=== PATIENT | female | born 1975 | race Caucasian/White ===

== ENCOUNTER 2018-03-02 05:05 | Day surgery (SDC) | payer OTHER ==
[2018-03-01 09:30] VITALS: BMI 60.5
[2018-03-02] MEDS ORDERED: DEXAMETHASONE SOD PHOSPHATE 4 MG/1 ML VIAL ONE (07:23)
[2018-03-02] MEDS ORDERED: LIDOCAINE HCL/PF 2% SDV 5ML VIAL ONE (07:23)
[2018-03-02] MEDS ORDERED: PROPOFOL 20 ML ONE ×5 (07:24→08:36)
[2018-03-02] MEDS ORDERED: MIDAZOLAM HCL 2 MG/2 ML SINGLE DOSE VIAL ONE (07:24)
[2018-03-02] MEDS ORDERED: SUCCINYLCHOLINE CHLORIDE 200 MG/10 ML VIAL ONE (07:24)
--- NOTE | 2018-03-02 07:46 | HP ---
History & Physical Update - History History: No Change - Physical Physical: No Change - Assessment Assessment: No Change - Plan Plan: No Change
[2018-03-02] MEDS ORDERED: oxyCODONE HCL 5 MG TABLET PO PRN (08:09)
[2018-03-02] MEDS ORDERED: ONDANSETRON 4 MG/2 ML VIAL IVPUSH PRN (08:09)
[2018-03-02] MEDS ORDERED: IBUPROFEN 600 MG TABLET (FP) PO PRN (08:09)
[2018-03-02] MEDS ORDERED: IBUPROFEN 800 MG/8 ML IJ IVPB PRN (08:09)
--- NOTE | 2018-03-02 08:09 | HP ---
Past Medical History - Primary Care Physician PCP:: Martin Martin - Admission Chief Complaint: irregular prolonged vaginal bleeding, thicken EM History of Present Illness: 42 yo f with 2 previous c/s, c/o prolonged vaginal bleeding ,lasting 2 weeks each time , sono thicken irregular EM History Source: Patient Limitations to Obtaining History: No Limitations - Past Surgical History Past Surgical History: Yes: Hx Myomectomy: No Hx Transabdominal Cerclage: No - Smoking History Smoking history: Never smoked Have you smoked in the past 12 months: No Aproximately how many cigarettes per day: 0 - Alcohol/Substance Use Hx Alcohol Use: Yes (social) - Social History History of Recent Travel: No Home Medications - Allergies Allergies/Adverse Reactions: Allergies Allergy/AdvReac Type Severity Reaction Status Date / Time Penicillins Allergy Verified 03/02/18 07:08 - Home Medications Home Medications: Ambulatory Orders Omeprazole 40 mg PO DAILY 03/01/18 Review of Systems - Review of Systems Constitutional: reports: No Symptoms Eyes: reports: No Symptoms HENT: reports: No Symptoms Neck: reports: No Symptoms Cardiovascular: reports: No Symptoms Respiratory: reports: No Symptoms Gastrointestinal: reports: No Symptoms Genitourinary: reports: No Symptoms Breasts: reports: No Symptoms Reported Musculoskeletal: reports: No Symptoms Integumentary: reports: No Symptoms Neurological: reports: No Symptoms Endocrine: reports: No Symptoms Physical Exam-[employer]INTER Vital Signs: Vital Signs Temperature 98.2 F 03/02/18 07:06 Pulse Rate 80 03/02/18 07:06 Respiratory Rate 20 03/02/18 07:06 Blood Pressure 121/79 03/02/18 07:06 O2 Sat by Pulse Oximetry (%) 98 03/02/18 07:06 Constitutional: Yes: Well Nourished, No Distress, Calm Eyes: Yes: WNL, Conjunctiva Clear, EOM Intact HENT: Yes: WNL, Atraumatic, Normocephalic Neck: Yes: WNL, Supple, Trachea Midline Cardiovascular: Yes: WNL, Regular Rate and Rhythm Respiratory: Yes: WNL, Regular, CTA Bilaterally Gastrointestinal: Yes: WNL ...Rectal Exam: Yes: WNL Renal/: Yes: WNL Pelvis: Yes: WNL External Genitalia: Yes: Normal Internal Exam Deferred: No Vaginal Exam: Yes: Bleeding Cervix: Yes: Normal Uterus: Yes: Enlarged Adnexa: Not Palpable: Left, Right Breast(s): Yes: WNL Musculoskeletal: Yes: WNL Extremities: Yes: WNL Edema: No Integumentary: Yes: WNL Neurological: Yes: WNL, Alert, Oriented ...Motor Strength: WNL Psychiatric: Yes: WNL, Alert, Oriented Problem List - Problem (1) Menometrorrhagia Code(s): N92.1 - EXCESSIVE AND FREQUENT MENSTRUATION WITH IRREGULAR CYCLE (2) Thickened endometrium Code(s): R93.89 - ABNORMAL FINDINGS ON DX IMAGING OF OTH BODY STRUCTURES Assessment/Plan hysteroscopy D&C , polypectomy
[2018-03-02] MEDS ORDERED: ELECTROLYTE-148 SOLN 1,000 ML IV SCH (08:15)
[2018-03-02] MEDS ORDERED: ONDANSETRON 4 MG/2 ML VIAL ONE (09:16)
[2018-03-02] MEDS ORDERED: LACTATED RINGERS SOLUTION 1,000 ML IV SCH (09:30)
[2018-03-02 17:04] VITALS: BP 120/70; PULSE 80; TEMP 98.2
--- NOTE | 2018-03-05 17:46 | PATH ---
Surgical Pathology Report Patient Name: GIORGIO LOPEZ [facility]. Rec. #: [id number] /Age/Gender: 1975 (Age: 42) / F Account: [id number] Location: [facility] SURGICAL Taken: 03/02/2018 Received: 03/02/2018 Reported: 03/05/2018 Physicians: Martin Martin M.D. Specimen(s) Received ENDOMETRIAL CURETTINGS AND ENDOMETRIAL POLYP Clinical History Endometrial thickening, irregular menses Final Diagnosis ENDOMETRIAL CURETTAGE AND POLYP, DILATION AND CURETTAGE: FRAGMENTS OF ENDOMETRIAL POLYP AND BENIGN CERVICAL TISSUE. Electronically Signed Tereza Gee M.D. Gross Description Received in formalin labeled "endometrial curettage with polyp," is a 4.3 x 3.3 x 0.4 cm aggregate of carrion soft tissue fragments admixed with blood-tinged mucous. The formalin is filtered and the specimen is entirely submitted in 2 cassettes. saudi/03/02/2018
--- NOTE | 2018-04-05 15:40 | OP ---
DATE OF OPERATION: 03/02/2018 PREOPERATIVE DIAGNOSES: Irregular menstrual period, prolonged vaginal bleeding, thickened endometrium, rule out endometrial polyp. POSTOPERATIVE DIAGNOSES: Irregular menstrual period, prolonged vaginal bleeding, thickened endometrium, rule out endometrial polyp. PROCEDURE: Hysteroscopy, dilatation and curettage, polypectomy. SURGEON: Martin Martin MD ANESTHESIA: General. ESTIMATED BLOOD LOSS: 30 mL DESCRIPTION OF OPERATIVE PROCEDURE: Patient was taken to the operating room. Under adequate general anesthesia in dorsal lithotomy position, examination under anesthesia revealed the external genitalia to be normal. Vagina was normal. Cervix was clean; no gross lesion. The uterus was prominent, anteverted. Adnexa: No masses were palpable. Then, with a weighted speculum in the vagina, anterior lip of the cervix was grasped with a single-tooth tenaculum. Cervix was gradually dilated with Hegar dilators, and Symphion resectoscope was introduced into the endocervical area and then advanced to the uterus. Uterus appeared to be irregular with endometrial polyp which was visualized in the right cornual area. At this time, with the Symphion resectoscope, the polyp was resected, and then, endometrium was curetted. Patient tolerated the procedure well, left the OR in good condition. Jorge A [id number]
== END 2018-03-02 11:40 | disposition home or self-care (01) ==
LOC: JASU-SURG 05:05
PROVIDERS: ATTEND Obstetrics & Gynecology
PROC: 0UJD8ZZ Inspection of Uterus and Cervix, Via Natural or Artificial Opening Endoscopic (ICD-10-PCS; 2018-03-02)
PROC: 0UB97ZX Excision of Uterus, Via Natural or Artificial Opening, Diagnostic (ICD-10-PCS; principal; 2018-03-02 08:00)
PROC: 0UDB7ZX Extraction of Endometrium, Via Natural or Artificial Opening, Diagnostic (ICD-10-PCS; 2018-03-02 08:00)
DX: N93.9 Abnormal uterine and vaginal bleeding, unspecified (principal); N84.0 Polyp of corpus uteri; N85.00 Endometrial hyperplasia, unspecified
CPT/HCPCS: 84703; 88305-TC; 94760

== ENCOUNTER 2019-03-29 15:19 | Emergency (ER) | payer OTHER ==
[2019-03-29 15:24] VITALS: BMI 25.8
--- NOTE | 2019-03-29 15:26 | PDOC ---
Rapid Medical Evaluation Medical Evaluation: Allergies Allergy/AdvReac Type Severity Reaction Status Date / Time Penicillins Allergy Verified 03/02/18 07:08 I have performed a brief in-person evaluation of this patient. The patient presents with a chief complaint of: had colonoscopy 3 days ago, c/o abdominal pain the day after colonoscopy; hx of PE (has IVC filter, is on Xarelto); had polyps removed during colonoscopy; patient's GI, Dr. Moctezuma, advised to come to ED Pertinent physical exam findings: In nad, abdomen soft, NT I have ordered the following: Labs The patient will proceed to the ED for further evaluation. 03/29/19 15:22
[2019-03-29 15:53] LABS: BASO % 0.8 % (0-2.0); EOS % 2.5 % (0-4.5); HEMATOCRIT 35.9 % (32.4-45.2); HEMOGLOBIN 11.7 GM/dL (10.7-15.3); MCH 25.8 pg (25.7-33.7); MCHC 32.7 g/dl (32.0-36.0); MEAN CELL VOLUME 78.9 fl (80-96); MEAN PLT VOLUME 7.8 fl (7.5-11.1); MONO % 6.8 % (3.8-10.2); NEUT % 59.9 % (42.8-82.8); PLATELET COUNT 269 K/MM3 (134-434); RBC 4.55 M/mm3 (3.60-5.2); WHITE BLOOD COUNT 6.4 K/mm3 (4.0-10.0)
[2019-03-29 15:57] LABS: EPI CELLS 6.2 /HPF (0-5/HPF); HYALINE CASTS 2 /lpf (0-8); PH,URINE 6.5 (5.0-8.0); URINE APPEARANCE CLEAR; URINE BACTERIA 44.2 /hpf (NEGATIVE); URINE BILIRUBIN NEGATIVE (NEGATIVE); URINE COLOR YELLOW; URINE GLUCOSE (UA) NEGATIVE (NEGATIVE); URINE KETONE NEGATIVE (NEGATIVE); URINE LEUK ESTERASE 2+ (NEGATIVE); URINE NITRITE NEGATIVE (NEGATIVE); URINE PROTEIN NEGATIVE (NEGATIVE); URINE RBC 1 /hpf (0-4); URINE UROBILINOGEN 0.2 mg/dL (0.2-1.0); URINE WBC 25 /hpf (0-5)
--- NOTE | 2019-03-29 15:57 | PDOC ---
History of Present Illness - General Chief Complaint: Pain Stated Complaint: ABD PAIN Time Seen by Provider: 03/29/19 15:21 History Source: Patient Exam Limitations: No Limitations - History of Present Illness Initial Comments: 43 year old female with PMH protein S deficiency, PE/abdominal clot s/p IVC filter, chronic constipation, GERD presented to ED for generalized abdominal pain x2.5 days. Pt reported she had an OP colonscopy x3 days ago with Dr. Moctezuma for rectal bleeding, polyps found and removed, and she went home feeling in her usual health. She admitted to one episode of nausea/vomiting yesterday, thinking it was 2/2 the intensity of the pain. She reported her pain is located to her generalized abdomen, nonradiating, no aggravating or alleviating factors. ROS General: denied fever, chills, generalized weakness. HEENT: denied sore throat, rhinorrhea, ear pain. Cardiovascular: denied chest pain, palpitations, syncope, diaphoresis. Respiratory: denied shortness of breath, cough, sputum production, hemoptysis. Gastrointestinal: admitted to abdominal pain, nausea, vomiting. denied diarrhea , constipation, blood in stool. Genitourinary: denied dysuria, increased urinary frequency, hematuria, urinary incontinence, flank pain. Back: denied back pain. Musculoskeletal: denied joint pain, muscle pain, joint swelling. Neurological: denied headache, dizziness, numbness, tingling, weakness. Integumentary: denied rash, laceration, abrasion. Hematologic/Lymphatic: denied bruising or bleeding. PE Constitutional: Well-nourished, Well-developed, appearing stated age. HEENT: head is normocephalic, atraumatic. EOMI. PERRLA. Neck: supple. Full ROM. Cardiovascular: regular heart rhythm. no murmurs. no pericardial friction rub. Respiratory: clear to auscultation bilaterally. no crackles, rhonchi or wheezing. no stridor. Gastrointestinal: soft, nontender. normal bowel sounds. no rebound, guarding, masses. Extremities: peripheral pulses intact. no lower extremity edema. Neurological: CN 2-12 grossly intact. moves all four extremities. Psych: awake, alert, oriented x3. follows commands. answers questions appropriately. Past History - Past Medical History Allergies/Adverse Reactions: Allergies Allergy/AdvReac Type Severity Reaction Status Date / Time Penicillins Allergy Verified 03/29/19 15:24 Home Medications: Ambulatory Orders Omeprazole 40 mg PO DAILY 03/01/18 Cephalexin Monohydrate [Keflex -] 500 mg PO BID 7 Days #14 capsule 03/29/19 Rivaroxaban [Xarelto -] 20 mg PO DAILY 03/29/19 Tramadol HCl 50 mg PO PRN 03/29/19 metroNIDAZOLE [Flagyl -] 250 mg PO TID #42 tablet 03/29/19 - Psycho Social/Smoking Cessation Hx Smoking Status: No Smoking History: Never smoked Have you smoked in the past 12 months: No Number of Cigarettes Smoked Daily: 0 Hx Alcohol Use: Yes (social) Drug/Substance Use Hx: No Substance Use Type: None Hx Substance Use Treatment: No *Physical Exam - Vital Signs Last Vital Signs Temp Pulse Resp BP Pulse Ox 98.5 F 81 18 136/78 100 03/29/19 15:21 03/29/19 15:21 03/29/19 15:21 03/29/19 15:21 03/29/19 15:21 ED Treatment Course - LABORATORY CBC & Chemistry Diagram: 03/29/19 15:38 03/29/19 15:38 - ADDITIONAL ORDERS Additional order review: 03/29/19 15:38 RBC 4.55 MCV 78.9 L MCHC 32.7 RDW 16.0 H MPV 7.8 Neutrophils % 59.9 Lymphocytes % 30.0 Monocytes % 6.8 Eosinophils % 2.5 Basophils % 0.8 Medical Decision Making - Medical Decision Making 43 year old female with above PMH presented to ED for generalized abdominal pain since the night of her recent colonoscopy. Pt reported she called Dr. Moctezuma's office, and a nurse informed her Dr. Moctezuma is in the hospital and will come by to see her. Initial Vital Signs Temp Pulse Resp BP Pulse Ox 98.5 F 81 18 136/78 100 03/29/19 15:21 03/29/19 15:21 03/29/19 15:21 03/29/19 15:21 03/29/19 15:21 Afebrile. No tachycardia. No tachypnea. No hypotension. No hypoxia on room air. Labs ordered: CBC, CMP, UA, serum , UA/UC, lactate Imaging ordered: CT abdomen/pelvis with IV contrast Medications ordered: tylenol IV once, normal saline bolus 1000 cc once I spoke with Dr. Moctezuma, who reported pt is high risk for clotting. He requested lactate, CT abdomen, if normal can discharge home with Flagyl 250 mg PO TID x2 weeks. 03/29/19 16:26 CBC WBC 6.4 K/mm3 (4.0-10.0) 03/29/19 15:38 RBC 4.55 M/mm3 (3.60-5.2) 03/29/19 15:38 Hgb 11.7 GM/dL (10.7-15.3) 03/29/19 15:38 Hct 35.9 % (32.4-45.2) 03/29/19 15:38 MCV 78.9 fl (80-96) L 03/29/19 15:38 MCH 25.8 pg (25.7-33.7) 03/29/19 15:38 MCHC 32.7 g/dl (32.0-36.0) 03/29/19 15:38 RDW 16.0 % (11.6-15.6) H 03/29/19 15:38 Plt Count 269 K/MM3 (134-434) 03/29/19 15:38 MPV 7.8 fl (7.5-11.1) 03/29/19 15:38 Absolute Neuts (auto) 3.8 K/mm3 (1.5-8.0) 03/29/19 15:38 Neutrophils % 59.9 % (42.8-82.8) 03/29/19 15:38 Lymphocytes % 30.0 % (8-40) 03/29/19 15:38 Monocytes % 6.8 % (3.8-10.2) 03/29/19 15:38 Eosinophils % 2.5 % (0-4.5) 03/29/19 15:38 Basophils % 0.8 % (0-2.0) 03/29/19 15:38 Nucleated RBC % 0 % (0-0) 03/29/19 15:38 No leukocytosis. No anemia. Low MCV. No thrombocytopenia. CMP Sodium 139 mmol/L (136-145) 03/29/19 15:38 Potassium 4.4 mmol/L (3.5-5.1) 03/29/19 15:38 Chloride 105 mmol/L (98-107) 03/29/19 15:38 Carbon Dioxide 29 mmol/L (21-32) 03/29/19 15:38 Anion Gap 5 MMOL/L (8-16) L 03/29/19 15:38 BUN 12.9 mg/dL (7-18) 03/29/19 15:38 Creatinine 0.8 mg/dL (0.55-1.3) 03/29/19 15:38 Est GFR (CKD-EPI)AfAm 103.19 03/29/19 15:38 Est GFR (CKD-EPI)NonAf 89.04 03/29/19 15:38 Random Glucose 86 mg/dL (74-106) 03/29/19 15:38 Calcium 9.4 mg/dL (8.5-10.1) 03/29/19 15:38 Total Bilirubin 0.6 mg/dL (0.2-1) 03/29/19 15:38 AST 26 U/L (15-37) 03/29/19 15:38 ALT 42 U/L (13-61) 03/29/19 15:38 Alkaline Phosphatase 105 U/L (45-117) 03/29/19 15:38 Total Protein 7.5 g/dl (6.4-8.2) 03/29/19 15:38 Albumin 4.0 g/dl (3.4-5.0) 03/29/19 15:38 Serum , Qual Negative 03/29/19 16:05 Urine Test Results Urine Color Yellow 03/29/19 15:38 Urine Appearance Clear 03/29/19 15:38 Urine pH 6.5 (5.0-8.0) D 03/29/19 15:38 Ur Specific [place] 1.009 (1.010-1.035) L 03/29/19 15:38 Urine Protein Negative (NEGATIVE) 03/29/19 15:38 Urine Glucose (UA) Negative (NEGATIVE) 03/29/19 15:38 Urine Ketones Negative (NEGATIVE) 03/29/19 15:38 Urine Blood Negative (NEGATIVE) 03/29/19 15:38 Urine Nitrite Negative (NEGATIVE) 03/29/19 15:38 Urine Bilirubin Negative (NEGATIVE) 03/29/19 15:38 Ur Leukocyte Esterase 2+ (NEGATIVE) H 03/29/19 15:38 03/29/19 17:24 Coags normal Lactate 2.2 IVF running, will give 1 additional liter. 03/29/19 17:34 CT report: Name: GIORGIO LOPEZ DEPARTMENT OF RADIOLOGY Phys: Tangela Moreno RESIDENT : 1975 Age: 43 Sex: F [facility] Acct: [id number] Loc: [place] [address] [facility] Exam Date: 03/29/19 Status: HECTOR [facility] Unit Number: [id number] EXAM#: TYPE/EXAM: RESULT: [id number] CT/ABDOMEN PELVIS CT WITH CONTR Abdomen and pelvis CT with contrast Clinical information: generalized abdominal pain; colonoscopy 3 days ago; history of protein S deficiency, IVC filter Multiplanar imaging was performed following the intravenous administration of nonionic contrast. Enteric contrast was not administered. No evidence of pneumoperitoneum , abscess, free intraperitoneal fluid or bowel obstruction. In comparison to a prior CT exam of 09/24/2017 interval insertion of an inferior vena cava filter is noted. A 1.7 x 0.9 x 0.9 cm hypodense focus is seen within the inferior vena cava lumen abutting the superior aspect of the filter suggestive of adherent thrombus. The remainder of the exam demonstrates no definite interval change. The appendix appears unremarkable. There is no CT evidence of acute diverticulitis obvious acute colitis. No gross noncontrast small bowel pathology is identified. Diffuse fatty infiltration of the liver is noted. The spleen, pancreas, gallbladder, adrenal glands and kidneys demonstrate no discrete abnormality. There is no aortic aneurysm. No definite lymphadenopathy is seen on the basis of size criteria. There is no obvious CT evidence of pelvic soft tissue pathology. Very small umbilical hernia containing fat only. Midline ventral abdominal wall laxity. Status post lower lumbar spine surgery. Impression: No definite CT findings of acute abnormality are noted. In comparison to a 2018 CT exam interval insertion of an inferior vena cava filter is seen. A 1.7 x 0.9 x 0.7 cm low-attenuation focus is seen within the inferior vena cava abutting the superior aspect of the filter suggestive of adherent thrombus. The remainder of the exam appears unchanged. Diffuse hepatic steatosis. Reported By: Mark Benavidez MD 03/29/19 [id number] Medications ordered: Flagyl 250 mg PO once,Keflex 500 mg PO once -Pt does not know what her allergy to Penicillin is as she "was so young" -Will give and observe 03/29/19 17:45 Pt reported no improvement of pain control from IV tylenol. Medications ordered: Ketamine 0.3 mg/kg over 15 minutes 03/29/19 19:24 Pt reported improvement of pain with Ketamine. Pending repeat Lactate. 03/29/19 20:11 Lactate 2.2 Pt reported improvement of pain, feels comfortable going home and will F/U with Dr. Moctezuma Monday at 10:00AM. Pt discharged. Discharge - Discharge Information Problems reviewed: Yes Clinical Impression/Diagnosis: Abdominal pain Condition: Stable Disposition: HOME - Admission No - Additional Discharge Information Prescriptions: Cephalexin Monohydrate [Keflex -] 500 mg PO BID 7 Days #14 capsule metroNIDAZOLE [Flagyl -] 250 mg PO TID #42 tablet - Follow up/Referral Referrals: Bhargavi Moralez MD [Primary Care Provider] - - Patient Discharge Instructions Additional Instructions: Follow up with Dr. Moctezuma Monday at 10:00 AM. Call his office in the morning and remind them you were told by Dr. Moctezuma to come in. He is expecting you. Drink lots of water/pedialyte/gatorade to stay hydrated. Take your pain medications you are prescribed at home. I have sent two antibiotics to your pharmacy. Take as advised on labels. Do not stop early even if you are feeling better. Return to the Emergency Department for inability to pass gas/bowel movement, increasing pain, chest pain, shortness of breath, vomiting, lightheadedness, passing out or any other new, worsening or concerning symptoms. - Post Discharge Activity Work/Back to School Note: Back to Work
[2019-03-29] MEDS ORDERED: SODIUM CHLORIDE 1,000 ML IV STA ×2 (16:14→17:25)
[2019-03-29] MEDS ORDERED: ACETAMINOPHEN 1000 MG/100 ML VIAL (NON FORMULARY) IVPB ONE (16:14)
[2019-03-29] MEDS ORDERED: ACETAMINOPHEN INJECTION 100 ML IVPB ONE (16:20)
[2019-03-29 16:25] LABS: BILIRUBIN,TOTAL 0.6 mg/dL (0.2-1); BLOOD UREA NITROGEN 12.9 mg/dL (7-18); CALCIUM 9.4 mg/dL (8.5-10.1); CREATININE 0.8 mg/dL (0.55-1.3); POTASSIUM 4.4 mmol/L (3.5-5.1); TOT PROT 7.5 g/dl (6.4-8.2)
--- NOTE | 2019-03-29 16:52 | PDOC ---
Attending Attestation - Resident Resident Name: Tangela Moreno - ED Attending Attestation I have performed the following: I have examined & evaluated the patient, The case was reviewed & discussed with the resident, I agree w/resident's findings & plan - HPI HPI: 03/29/19 16:51 43 year old female with PMH protein S deficiency, PE/abdominal clot s/p IVC filter, chronic constipation, GERD presented to ED for generalized abdominal pain x 3 days, nonradiating, no alleviating or exacerbating factors.. Pt reported she had an OP colonscopy x3 days ago with Dr. Moctezuma for rectal bleeding, polyps found and removed, no complications noted. She admitted to one episode of nausea/vomiting yesterday, a/w abdominal pain. - Physicial Exam PE: 03/29/19 17:42 Agree with the resident's HPI and PE as documented in the electronic medical record. NAD, well appearing, EOMI, PERRL, nl conjunctiva, anicteric; neck supple. lungs clear, RRR, abdomen soft +tender diffusely, no rebound, guarding. Back nontender. STEPHENSON x4, no focal neuro deficits. No peripheral edema. normal color for ethnicity, WWP. - Medical Decision Making 03/29/19 16:52 Vital Signs Temp Pulse Resp BP Pulse Ox 98.5 F 81 18 136/78 100 03/29/19 15:21 03/29/19 15:21 03/29/19 15:21 03/29/19 15:21 03/29/19 15:21 DDx abdominal pain: Renal colic, biliary colic, metabolic/electrolyte derangements. GERD, PUD, esophageal spasm, pancreatitis, hepatitis, constipation , colitis, gastroenteritis, cholecystitis, UTI, pyelonephritis, ileus, SBO, medication side effect, hernia, appendicitis, diverticulitis, mesenteric ischemia. msk strain, mesenteric adenitis, psoas abscess. perforation. labs and lytes unremarkable lactic borderline 2.2, hydrated, will recheck and trend - stable, does not appear tox or septic or ischemic UA +UTI, with clinical sx, will treat, f/u cultures, treat with keflex (low cross reactivity with pcn allergy, prior history as child but does not recall reaction, so will trial) Dr Moctezuma rec'd flagyl, to f/u Dr Moctezuma on Monday in [address] a/p unremarkable for acute abdominal process/infection/mass/perf/obstruction. Abdomen Reassessment: The patient appears comfortable and states that pain is improved. Given medications analgesia, IVF, ketamine (takes home tramadol for her chronic back pain) with clinical improvement. Tolerating oral intake. Vital signs reviewed and are normal. On repeat physical exam, the abdomen is soft and nontender, no suggestive findings for acute abdominal process at this time. All diagnostics tests reviewed and discussed with the patient. On repeat examination prior to discharge, the patient has a soft abdomen with no peritoneal findings. The patient was able to tolerate oral intake. The patient was advised that even though there is no evidence of a surgical emergency at this time, sometimes this is not visible on ct scan or in the labs early in a disease course and that if there is additional pain they are to return for repeat evaluation. The patient stated understanding of this, has decision making capacity and is discharged in stable condition. The patient was instructed to return to the emergency department for re-evaluation in 24-48 hours and sooner if they feel worse in any way. 03/29/19 17:43 03/29/19 18:17 03/29/19 23:14
[2019-03-29 16:55] LABS: INR 1.05 (0.83-1.09); PROTHROMBIN TIME (PATIENT) 12.4 SEC (9.7-13.0)
[2019-03-29] MEDS ORDERED: metroNIDAZOLE 250 MG TABLET PO ONE (17:36)
[2019-03-29] MEDS ORDERED: CEPHALEXIN MONOHYDRATE 500 MG CAPSULE (UD) PO ONE (17:41)
[2019-03-29] MEDS ORDERED: KETAMINE HCL 200 MG/20 ML VIAL IVPUSH ONE (17:43)
[2019-03-29] MEDS ORDERED: KETAMINE HCL 500 MG/10 ML VIAL IVPB ONE (17:46)
[2019-03-29] MEDS ORDERED: CEPHALEXIN MONOHYDRATE 500 MG CAPSULE (UD) ONE (18:23)
[2019-03-29] MEDS ORDERED: metroNIDAZOLE 250 MG TABLET ONE (18:23)
[2019-03-29] MEDS ORDERED: KETAMINE HCL 200 MG/20 ML VIAL ONE (19:09)
[2019-03-29 20:11] VITALS: BP 115/78; PULSE 83; TEMP 98
== END 2019-03-29 20:30 | disposition home or self-care (01) ==
LOC: JER 15:19
PROC: 3E0337Z Introduction of Electrolytic and Water Balance Substance into Peripheral Vein, Percutaneous Approach (ICD-10-PCS; principal; 2019-03-29)
PROC: 3E033NZ Introduction of Analgesics, Hypnotics, Sedatives into Peripheral Vein, Percutaneous Approach (ICD-10-PCS; 2019-03-29)
PROC: 3E033FZ Introduction of Intracirculatory Anesthetic into Peripheral Vein, Percutaneous Approach (ICD-10-PCS; 2019-03-29)
DX: R10.84 Generalized abdominal pain (principal); G89.18 Other acute postprocedural pain; Z86.711 Personal history of pulmonary embolism; Z79.01 Long term (current) use of anticoagulants; Z95.828 Presence of other vascular implants and grafts; K21.9 Gastro-esophageal reflux disease without esophagitis; K59.00 Constipation, unspecified; Z88.0 Allergy status to penicillin
CPT/HCPCS: 36415; 74177-TC; 80053; 81003; 83605; 84703; 85025; 85610; 85730; 96361; 96374; 96375; 99283-25; J0131; J7030

== ENCOUNTER 2020-05-21 11:14 | Emergency (ER) | payer OTHER ==
[2020-05-21 11:20] VITALS: BMI 28.9
[2020-05-21] MEDS ORDERED: ACETAMINOPHEN 500 MG TABLET (FP) PO ONE (12:33)
[2020-05-21 13:04] LABS: BASO % 0.8 % (0-2.0); EOS % 2.2 % (0-4.5); HEMATOCRIT 40.8 % (32.4-45.2); HEMOGLOBIN 13.8 GM/dL (10.7-15.3); MCH 30.9 pg (25.7-33.7); MCHC 33.9 g/dl (32.0-36.0); MEAN CELL VOLUME 91.4 fl (80-96); MEAN PLT VOLUME 8.3 fl (7.5-11.1); MONO % 10.9 % (3.8-10.2); NEUT % 62.1 % (42.8-82.8); PLATELET COUNT 197 K/MM3 (134-434); RBC 4.46 M/mm3 (3.60-5.2); RDW 13.1 % (11.6-15.6); WHITE BLOOD COUNT 3.9 K/mm3 (4.0-10.0)
[2020-05-21 13:24] LABS: CHLORIDE 104 mmol/L (98-107); POTASSIUM 4.1 mmol/L (3.5-5.1); SODIUM 140 mmol/L (136-145)
[2020-05-21 13:26] LABS: ALBUMIN 3.8 g/dl (3.4-5.0); ANION GAP 8 MMOL/L (8-16); BLOOD UREA NITROGEN 14.6 mg/dL (7-18); CO2 28 mmol/L (21-32)
[2020-05-21 13:27] LABS: GLUCOSE,RANDOM 78 mg/dL (74-106)
[2020-05-21 13:28] LABS: SGPT/ALT 138 U/L (13-61)
[2020-05-21 13:30] LABS: CREATININE 0.8 mg/dL (0.55-1.3); SGOT/AST 74 U/L (15-37)
[2020-05-21 13:31] LABS: ALK PHOS 106 U/L (45-117); BILIRUBIN,TOTAL 0.6 mg/dL (0.2-1); TOT PROT 7.6 g/dl (6.4-8.2)
[2020-05-21] MEDS ORDERED: ACETAMINOPHEN 325 MG TABLET (FP) ONE ×2 (13:41→14:08)
[2020-05-21 14:27] LABS: PH,URINE 7.5 (5.0-8.0); URINE APPEARANCE TURBID; URINE BILIRUBIN NEGATIVE (NEGATIVE); URINE COLOR YELLOW; URINE GLUCOSE (UA) NEGATIVE (NEGATIVE); URINE KETONE NEGATIVE (NEGATIVE); URINE LEUK ESTERASE NEGATIVE (NEGATIVE); URINE NITRITE NEGATIVE (NEGATIVE); URINE PROTEIN NEGATIVE (NEGATIVE); URINE UROBILINOGEN 0.2 mg/dL (0.2-1.0)
[2020-05-21 14:31] LABS: HCG,QUALITATIVE URINE Negative
[2020-05-21 17:19] VITALS: BP 109/74; PULSE 85; TEMP 98.6
== END 2020-05-21 17:33 | disposition home or self-care (01) ==
LOC: JER 11:14
DX: U07.1 COVID-19 (principal)
CPT/HCPCS: 36415; 71275-TC; 80053; 81003; 82550; 84484; 84702; 84703; 85025; 85379; 87086; 87426; 93005; 93010; 99285-25; Q9967

== ENCOUNTER 2022-11-04 10:38 | Emergency (ER) | payer OTHER ==
[2022-11-04 10:46] VITALS: BMI 26.6
[2022-11-04 12:36] LABS: BASO % 0.7 % (0-2.0); EOS % 2.4 % (0-4.5); HEMATOCRIT 42.1 % (32.4-45.2); HEMOGLOBIN 14.2 GM/dL (10.7-15.3); LYMPH % 30.2 % (8-40); MCH 30.2 pg (25.7-33.7); MCHC 33.8 g/dl (32.0-36.0); MEAN CELL VOLUME 89.4 fl (80-96); MEAN PLT VOLUME 8.1 fl (7.5-11.1); MONO % 7.6 % (3.8-10.2); NEUT % 59.1 % (42.8-82.8); PLATELET COUNT 259 10^3/uL (134-434); RBC 4.71 M/mm3 (3.60-5.2); RDW 12.6 % (11.6-15.6); WHITE BLOOD COUNT 5.9 K/mm3 (4.0-10.0)
[2022-11-04 12:43] LABS: INR 1.09 (0.83-1.09); PROTHROMBIN TIME (PATIENT) 12.6 SEC (9.7-13.0)
[2022-11-04 12:46] LABS: ACTIVATED PTT 29.4 SECONDS (25.2-36.5)
[2022-11-04 12:52] LABS: POTASSIUM 4.3 mmol/L (3.5-5.1)
[2022-11-04 12:54] LABS: BLOOD UREA NITROGEN 11.3 mg/dL (7-18); CALCIUM 9.2 mg/dL (8.5-10.1)
[2022-11-04 12:57] LABS: CREATININE 0.7 mg/dL (0.55-1.3)
[2022-11-04 13:00] LABS: BILIRUBIN,TOTAL 0.7 mg/dL (0.2-1); TOT PROT 7.7 g/dl (6.4-8.2)
[2022-11-04 16:59] VITALS: BP 118/91; PULSE 79; RESP 14; TEMP 98.8
== END 2022-11-04 17:14 | disposition home or self-care (01) ==
LOC: JER 10:38
DX: R07.9 Chest pain, unspecified (principal); R06.02 Shortness of breath
CPT/HCPCS: 0241U-QW; 36415; 71046-TC-FY; 71275-TC; 80053; 84484; 85025; 85610; 85730; 86850; 86870; 86900; 86901; 86902; 93005; 93010; 99285-25; Q9967

== ENCOUNTER 2023-11-01 04:30 | Day surgery (SDC) | payer OTHER ==
[2023-11-01 06:17] VITALS: BMI 30.4
[2023-11-01] MEDS ORDERED: CEFAZOLIN SODIUM 2 GM in DEXTROSE 5%-WATER 100 ML IVPB ONE (07:00)
[2023-11-01] MEDS ORDERED: BUPIVACAINE HCL/PF 0.25% (2.5MG/ML) 10 ML VIAL ONE (07:21)
[2023-11-01] MEDS ORDERED: LIDOCAINE 1%/EPI 1:100000 (20 ML MULTI DOSE VIAL) ONE (07:21)
[2023-11-01] MEDS ORDERED: ACETAMINOPHEN INJECTION 100 ML IVPB ONE (07:58)
[2023-11-01] MEDS: BUPIVACAINE HCL/PF 0.25% (2.5MG/ML) 10 ML VIAL IJ ONE ×2 (08:41)
[2023-11-01] MEDS ORDERED: ONDANSETRON 4 MG/2 ML VIAL IVPUSH PRN (09:13)
[2023-11-01] MEDS ORDERED: LACTATED RINGERS SOLUTION 1,000 ML IV SCH (09:15)
[2023-11-01 11:15] VITALS: RESP 16
[2023-11-01 11:21] VITALS: TEMP 97.5
[2023-11-01] MEDS ORDERED: oxyCODONE HCL 5 MG TABLET ONE (11:30)
[2023-11-01] MEDS: oxyCODONE HCL 5 MG TABLET PO PRN (11:32)
[2023-11-01 13:49] VITALS: BP 118/74; PULSE 82
== END 2023-11-01 13:10 | disposition home or self-care (01) ==
LOC: JASU-SURG 04:30
PROVIDERS: ATTEND Surgery Surgical Oncology
PROC: 0HBY0ZZ Excision of Supernumerary Breast, Open Approach (ICD-10-PCS; principal; 2023-11-01 08:00)
DX: Q83.1 Accessory breast (principal)
CPT/HCPCS: 88307-TC; 94760; J0131

== ENCOUNTER 2024-05-05 17:26 | Emergency (ER) | payer OTHER ==
[2024-05-05 17:32] VITALS: RESP 18; BMI 28.9
[2024-05-05] MEDS: ACETAMINOPHEN 1000 MG/100 ML BAG IVPB ONE (18:44)
[2024-05-05] MEDS ORDERED: IBUPROFEN 600 MG TABLET (FP) PO ONE (18:49)
[2024-05-05] MEDS ORDERED: DOXYCYCLINE HYCLATE 100 MG CAPSULE PO ONE ×2 (18:50)
[2024-05-05] MEDS ORDERED: ACETAMINOPHEN 500 MG TABLET (FP) ONE (18:50)
[2024-05-05] MEDS: ACETAMINOPHEN 500 MG TABLET (FP) PO ONE (18:54)
[2024-05-05] MEDS: IBUPROFEN 600 MG TABLET (FP) PO ONE (18:55)
[2024-05-05] MEDS ORDERED: AMOX TR/POT CLAV 875MG/125MG TABLETS (FP) ONE (19:07)
[2024-05-05] MEDS: AMOX TR/POT CLAV 875MG/125MG TABLETS (FP) PO ONE (19:12)
[2024-05-05] MEDS: DEXTROMETHORPHAN/PROMETHAZINE 15 MG/6.25 MG/5 ML SYRUP PO ONE (19:24)
[2024-05-05 19:56] VITALS: BP 131/82; PULSE 98; TEMP 98.9
== END 2024-05-05 19:56 | disposition home or self-care (01) ==
LOC: JERFT 17:26 → JER 17:26 → JERFT 19:56
DX: U07.1 COVID-19 (principal); H66.91 Otitis media, unspecified, right ear; J01.90 Acute sinusitis, unspecified; J06.9 Acute upper respiratory infection, unspecified; R05.9 Cough, unspecified; R09.81 Nasal congestion
CPT/HCPCS: 0241U-QW; 71046-TC-FY; 99284-25